=== PATIENT | male | born 1940 | race Caucasian/White ===

== ENCOUNTER 2020-07-24 21:45 | Emergency (ER) | payer OTHER ==
[~2020-07-24] VITALS: Ht 172.7 cm; Wt 77.1 kg
[2020-07-25 04:03] VITALS: BP 128/57
== END 2020-07-25 04:19 | disposition home or self-care (01) ==
LOC: ER 21:45
DX: S51.812A Laceration without foreign body of left forearm, initial encounter (principal); M79.602 Pain in left arm; E78.5 Hyperlipidemia, unspecified; G20 Parkinson's disease; W26.8XXA Contact with other sharp object(s), not elsewhere classified, initial encounter; Y93.89 Activity, other specified; Y92.89 Other specified places as the place of occurrence of the external cause; Y99.8 Other external cause status
CPT/HCPCS: 12002; 73080; 73090